=== PATIENT | male | born 2000 | race Caucasian/White ===

== ENCOUNTER 2025-05-13 16:29 | Emergency (ER) | payer BC ==
[~2025-05-13] VITALS: Ht 170.2 cm; Wt 60.0 kg
[2025-05-13 16:30] VITALS: O2SAT 98
[2025-05-13 16:35] VITALS: BP 136/82; PULSE 91; RESP 14; TEMP 37.1; O2SAT 98
== END 2025-05-13 17:58 | disposition left against medical advice (07) ==
LOC: ER 16:29
DX: S61.251A Open bite of left index finger without damage to nail, initial encounter (principal); X58.XXXA Exposure to other specified factors, initial encounter; Y93.89 Activity, other specified; Y92.89 Other specified places as the place of occurrence of the external cause; Y99.8 Other external cause status
CPT/HCPCS: 99281